=== PATIENT | male | born 1960 | race Caucasian/White ===

== ENCOUNTER 2017-03-01 17:54 | Emergency (ER) | payer OTHER ==
[2017-03-01 18:00] VITALS: RESP 16
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
[2017-03-01 19:18] LABS: ANION GAP 11 mEq/L (8-16); CALCIUM 9.7 mg/dL (8.5-10.4); CARBON DIOXIDE 25 mEq/l (22-31); CHLORIDE 102 mEq/L (97-110); GLOMERULAR FILTRATION RATE > 60; GLUCOSE 88 mg/dL (70-100); POTASSIUM 4.1 mEq/L (3.5-5.2); SODIUM 138 mEq/L (134-144)
--- NOTE | 2017-03-01 19:28 | CPEKG ---
Heart Rate: 54 RR Interval: 1111 P-R Interval: 224 QRSD Interval: 94 QT Interval: 424 QTC Interval: 402 P [place]: 42 QRS [place]: 60 T Wave [place]: 54 EKG Severity - ABNORMAL ECG - EKG Impression: SINUS RHYTHM EKG Impression: Mild early repolarization unchanged from prior EKG Electronically Signed By: Joey Culver 01-Mar-2017 19:29:48
[2017-03-01 19:30] LABS: TROPONIN I < 0.012 ng/mL (0.000-0.034)
[2017-03-01 20:27] VITALS: BP 127/84; PULSE 57; TEMP 97.9; O2SAT 97
== END 2017-03-01 20:27 | disposition home or self-care (01) ==
DX: R20.2 Paresthesia of skin (principal)